=== PATIENT | female | born 2000 | race Two or more races ===

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

== ENCOUNTER 2022-02-21 23:14 | Emergency (ER) | payer MEDICAID ==
[~2022-02-21] VITALS: Ht 160 cm; Wt 54.4 kg
[2022-02-21] MEDS ORDERED: FAMOTIDINE (20 MG) 20 MG TABLET ONE (23:30)
[2022-02-21] MEDS ORDERED: cetrizine 10 MG TABLET PO ONE (23:30)
[2022-02-21] MEDS ORDERED: predniSONE 20 MG TABLET PO ONE (23:30)
[2022-02-21] MEDS ORDERED: FAMOTIDINE (20 MG) 20 MG TABLET PO ONE (23:30)
[2022-02-21] MEDS ORDERED: cetrizine 10 MG TABLET ONE (23:30)
[2022-02-21] MEDS ORDERED: PRED20TA PO (23:31)
[2022-02-21] MEDS ORDERED: CETI-108 PO (23:31)
[2022-02-21] MEDS ORDERED: EPIN0.3P3 IM (23:31)
[2022-02-21] MEDS ORDERED: FAMO-131 PO (23:31)
[2022-02-21] MEDS ORDERED: predniSONE 20 MG TABLET ONE (23:38)
[2022-02-22 01:31] VITALS: BP 110/77
== END 2022-02-22 01:31 | disposition home or self-care (01) ==
LOC: ER 23:18
DX: T78.2XXA Anaphylactic shock, unspecified, initial encounter (principal); Z79.899 Other long term (current) drug therapy
CPT/HCPCS: 99284; J7512